=== PATIENT | female | born 1975 | race Caucasian/White ===

== ENCOUNTER 2025-04-07 12:44 | Outpatient (CLI) | payer BC, MEDICAID, SELFPAY ==
--- NOTE | ~2025-04-07 | MMUS_ITS ---
EXAMINATION: US breast RT limited, MM diagnostic tori BI w gemma HISTORY: Palpable right breast abnormality. Recent trauma. Bruising in the area of concern. TECHNIQUE: Additional 3-D tomosynthesis images of the breasts were performed and synthetic 2-D images were generated. CAD analysis was submitted and interpreted. High resolution Limited right breast ult rasound was performed. COMPARISON: Comparison to multiple prior studies sequentially, with oldest reviewed study dated 02/2023. BREAST PARENCHYMAL COMPOSITION: Not dense: There are scattered areas of fibroglandular density. FINDINGS: MAMMOGRAPHIC FINDINGS: There are no suspicious masses, calcifications or architectural distortion in either breast to sugges t malignancy. ULTRASOUND: Limited right breast ultrasound: An area palpable concern at 3:30, 5 cm from the nipple there is an o sydnee parallel oriented hyperechoic mass without internal vascularity measuring 9 x 9 x 6 mm. No signif icant posterior features. IMPRESSION: 1. Oval parallel oriented hyperechoic right breast mass at 3:30, 5 cm from the nipple measuring 9 mm, likely benign lipoma or hematoma. 2. Recommend 6 month follow-up Limited right breast ultrasound BI-RADS category 3, probably benign findings. Reviewed, dictated and finalized at location B. IMPRESSION: 1. Oval parallel oriented hyperechoic right breast mass at 3:30, 5 cm from the nipple measuring 9 mm, likely benign lipoma or hematoma. 2. Recommend 6 month follow-up Limited right breast ultrasound BI-RADS category 3, probably benign findings.
--- OUTSIDE RECORDS SUMMARY | 2025-04-07 12:53 | XMS_ITS | Clinical Summary ---
Author Organization [facility] Address [address] [place] [address] Phone Care Team Providers Care Cabin Worker Name Role Phone Stefany Alvarado Primary Care Provider [phone] Allergies Active Allergy Reactions Criticality Noted Date Comments Flagyl (As Hcl) Nausea and Vomiting,Constipation Low 08/26/2022 Medications aspirin (CRISTIAN CHEWABLE) 81 mg Tablet, Chewable Take 1 Tablet (81 mg) by mouth daily. 30 Tablet 1 07/11/20 24 Active ticagrelor (BRILINTA) 90 mg Tablet Take 1 Tablet (90 mg) by mouth 2 times daily. 180 Tablet 3 5 4:54 PM CDT 07/21/20 24 Active nitroglycerin (NITROSTAT) 0.[address], [address] 1 Tablet (0.4 mg) under tongue every 5 minutes as needed for Chest Pain. 25 Tablet 3 4 8:10 AM INSTRUMENT TECHNICIAN APPRENTICE 07/21/20 24 Active levothyroxine 125 mcg tabletIndications: Primary hypothyroidism Take 1 Tablet (125 mcg) by mouth daily in the morning. 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 90 Tablet 3 03/23/20 25 Active atorvastatin (LIPITOR) 80 mg tablet Take 1 Tablet (80 mg) by mouth daily. 90 Tablet 3 5 4:54 PM CDT 07/21/20 24 025 Discontin ued(Reord er) ezetimibe (ZETIA) 10 mg tablet Take 1 Tablet (10 mg) by mouth daily. 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 6 mL 3 5 12:12 PM CDT 09/23/19 25 025 Discontin ued(Reord er) levothyroxine 125 mcg tabletIndications: Primary hypothyroidism Take 1 Tablet (125 mcg) by mouth daily in the morning. 30 Tablet 2 5 4:54 PM CDT 12/10/19 25 025 Discontin ued(Reord er) Active Problems Patient Care Coordination No te Formatting of this note migh t be different from the original. Bert Reza MD Pfitzinger, Karen L, JOSÉ MIGUEL Problem Noted Date Diagnosed Date Groin abscess 11/26/2024 S/P angioplasty with stent 11/09/2024 Mixed dyslipidemia 11/09/2024 SIRS (systemic inflammatory response syndrome) 1 09/25/2023 Acute nonintractable headache 07/25/2024 Adrenal nodule 07/25/2024 Coronary artery disease invo lving cloverdale coronary artery of cloverdale heart without angina pectoris 07/25/[address] elevation myocardial infarction (S SIS) 07/25/2024 Hyperbilirubinemia 07/25/2024 Tobacco dependence 07/25/2024 Transaminitis 07/25/2024 Chest pain 07/08/2024 Tobacco abuse 07/08/2024 Severe hypothyroidism 07/08/2024 Symptomatic bradycardia 07/08/2024 Primary hypothyroidism 07/08/2024 Myxedema 07/08/2024 Benign essential HTN 07/08/2024 Mixed hyperlipidemia Resolved Problems Problem Noted Date Diagnosed Date Resolved Date STEMI (ST elevation myocardial infarction) 07/08/2024 11/26/2024 Hypothermia 07/08/2024 11/26/2024 Encounters Date Type Department Care Team Description 03/23/2025 1:40 PM CDT Office Visit [facility] Endocrinology [address] [address] [address] [place] [address] Margaret Douglas MD Primary hypothyroidism (Primary Dx); 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; Essential hypertension; Mixed hyperlipidemia 03/14/2025 External Device Data STL ABSTRACTION Provider, Abstract 02/21/2025 External Device Data STL ABSTRACTION Provider, Abstract 01/31/2025 External Device Data STL ABSTRACTION Provider, Abstract 01/31/2025 External Device Data STL ABSTRACTION Provider, Abstract from Last 3 Months Immunizations Immunization Administration Dates Next Due (ADACEL/BOOSTRIX)(10 YR UP) TDAP VACCINE, 0.5ML, IM 10/23/2023 Family History Medical History Relation Name Comments Breast Cancer Maternal Grandmother Colon Cancer Neg Hx Ovarian Cancer Neg Hx Uterine Cancer Neg Hx Relation Name Status Comments Daughter Alive Maternal Grandmother Son Alive Social History Tobacco Use Types Packs/Day Years Used Date Smoking Tobacco: Every Day Cigarettes Smokeless Tobacco: Never Tobacco Cessation:Ready to Q uit: Not Asked; Counseling Given: Not Answered Alcohol Use Standard Drinks/Week Comments Not Currently 0 (1 standard drink = 0.6 oz pur e alcohol) Comments No Sex and Gender Information Value Date Recorded Sex Assigned at Female 08/10/2024 9:16 AM INSTRUMENT TECHNICIAN APPRENTICE Legal Sex Female 2:44 PM INSTRUMENT TECHNICIAN APPRENTICE Gender Identity Not on file Sexual Orientation Not on file Last Filed Vital Signs Vital Sign Reading Time Taken Comments Blood Pressure 122/80 03/23/2025 2:10 PM CDT Pulse 99 03/23/2025 2:10 PM CDT Temperature 36.2 C (97.2 F) 12/07/2024 2:04 PM CDT Respiratory Rate 16 12/07/2024 2:04 PM CDT Oxygen Saturation 98% 03/23/2025 2:10 PM CDT Inhaled Oxygen Concentration - - Weight 54.8 kg (120 lb 12.8 oz) 03/23/2025 2:10 PM CDT Height 144.8 cm (4' 9) 03/23/2025 2:10 PM CDT Body Mass Index 26.14 03/23/2025 2:10 PM CDT Plan of Treatment Upcoming Encounters Date Type Department Care Team (Late st Contact Info) Description 04/28/2025 2:30 PM CDT Office Visit [facility] [place] [address] [address] [address] [place] [address] Cuca Palma, COST COORDINATOR [address] [address] [address] [place] [address] 06/22/2025 1:00 PM CDT Office Visit [facility] [place] [address] [place] [address] Stefany Alvarado DO [address] [facility] [place] [address] 06/23/2025 1:00 PM CDT Office Visit [facility] Endocrinology [address] [address] [address] [place] [address] Randi Christine NP [address] [address] [address] [place] [address] 09/29/2025 1:20 PM INSTRUMENT TECHNICIAN APPRENTICE Office Visit [facility] Endocrinology [address] [address] [address] [place] [address] Margaret Douglas MD [address] [place] [address] Health Maintenance Due Date Last Done Comments HEPATITIS B VACCINES (1 of 3 - 19+ 3-dose series) 1995 FIT-DNA Q 3 years 2021 FIT/FOBT Q 1 year 2021 Flex Sig/CT Colonography Q 5 years 2021 BREAST CANCER SCREENING 09/26/2023 09/26/2022 Preventative Visit- Commercial 09/21/2024 08/26/2022 INFLUENZA VACCINE (#1) 2025 Pre-Diabetes and Diabetes Screening 07/08/202707/08 HPV/Cotest (21-29) 08/26/2027 08/26/2022 HPV/Cotest (30-65) 08/26/2027 08/26/2022 CERVICAL CANCER SCREENING 03/14/2028 PAP SMEAR 03/14/2028 03/14/2025, 08/26/2022 COLORECTAL SCREENING 12/05/2032 12/05/2022, 12/06/19 23 Colorectal Cancer Screening 12/05/2032 DTAP/TDAP/TD VACCINES (2 - Td or Tdap) 10/23/2033 Medical Devices Implanted Type Area Category Development Manager Device Identifier Shelf Expiration Date Model / Serial / Lot Stent Synergy Xd 2.08v33he Evrlms ut [id number] - [id number] Implanted:Qty : 1 on 07/08/2024 at [facility] Stent Right: Coronary [employer] 11/17/2025 [id number] / / [id number] Procedures Procedure Name Priority Date/Time Associated Diagnosis Comments LIPID PANEL Routine 03/23/2025 3:22 PM CDT 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 Mixed hyperlipidemia TSH REFLEXIVE Routine 03/23/2025 3:22 PM CDT Primary hypothyroidism HEMOGLOBIN A1C Stat 07/08/2024 4:40 AM CDT COLONOSCOPY REPORT 12/05/2022 1: 44 PM CDT MAMMO 3D YIN SCREEN BILAT W OR WO CAD Routine 09/26/2022 1:53 PM INSTRUMENT TECHNICIAN APPRENTICE Visit for screening mammogram CERV/VAG CYTO AGE BASED SCREEN PAP Routine 08/26/2022 2:45 PM INSTRUMENT TECHNICIAN APPRENTICE Well woman exam with routine gynecological exam Screening for cervical cancer from Last 3 Months or Most Recently Relevant to Health Maintenance Results * TSH REFLEXIVE (03/23/2025 3:22 PM CDT) TSH 0.48 mIU/L [facility] Comment: Reference Range > or = 20 Years 0.40-4.50 Ranges First trimester 0.26-2.66 Second trimester 0.55-2.73 Third trimester 0.43-2.91 Test Performed at: [facility] [address] [place] [address] Cady Pollock MD Blood 03/23/2025 3:22 PM CDT 03/23/2025 3:23 PM CDT Margaret Douglas MD CHEMISTRY ORDERABLES Final Result [facility] [phone] [facility] [address] [place] [address] * LIPID PANEL (03/23/2025 3:22 PM CDT) CHOLESTEROL 156 <200 mg/dL [facility] HDL 50 > OR = 50 mg/dL [facility] TRIGLYCERIDE 86 <150 mg/dL [facility] LDL CALCULATED 88 mg/dL (calc) [facility] Comment: Reference range: <100 Desirable range <100 mg/dL for primary prevention; <70 mg/dL for patients with CHD or diabetic patients with > or = 2 CHD risk factors. LDL-C is now calculated using the Brenden-Wick calculation, which is a validated novel method providing better accuracy than the Friedewald equation in the estimation of LDL-C. Brenden SS et al. TREVA. 2013;310(09): 3144-1727 (http://education.Opsens/faq/ACN583) CHOL/HDL RATIO 3.1 <5.0 (calc) [facility] NON-HDL CHOLESTEROL 106 <130 mg/dL (calc) [facility] Comment: For patients with diabetes plus 1 major ASCVD risk factor, treating to a non-HDL-C goal of <100 mg/dL (LDL-C of <70 mg/dL) is considered a therapeutic option. Test Performed at: [facility] [address] [place] [address] Cady Pollock MD Blood 03/23/2025 3:22 PM CDT 03/23/2025 3:23 PM CDT Margaret Douglas MD CHEMISTRY ORDERABLES Final Result Performing Organization Address City/[facility] de Phone Number [facility] [phone] [facility] [address] [place] [address] * HEMOGLOBIN A1C (07/08/2024 4:40 AM CDT) HEMOGLOBIN A1C 5.6 <=5.6 % 07/08/2024 5:34 AM CDT [facility] EST. AVG GLUCOSE, A1C 114 mg/dL 07/08/2024 5:34 AM CDT [facility] Blood Collection / Unknown 07/08/2024 4:40 AM CDT 07/08/2024 5:05 AM CDT Narrative [facility] - 07/08/2024 5:34 AM CDT HGB A1C INTERPRETATION NORMAL: <5.7% PRE-DIABETES: 5.7 - 6.4% DIABETES: 6.5% OR GREATER David Damico MD CHEMISTRY ORDERABLES Final Result Performing Organization Address City/[facility] Co de Phone Number [facility] [[email or web address]] CLIA # [id number] [address] [place] [id number] * COLONOSCOPY REPORT (12/05/2022 1:44 PM CDT) Narrative Procedure Note Henrry Stacy MD - 12/05/2022 1:44 PM CDT [facility] Endoscopy Patient Name: Vanesa Nuñez Procedure Date: 12/05/2022 Date of : 1975 Admit Type: Ambulatory Attending MD: Henrry Stacy MD, Procedure: Colonoscopy Indications: Screening for colorectal malignant neoplasm, This is the patient's first colonoscopy Patient Profile: This is a 47 year old female. Refer to note in patient chart for documentation of history and physical. Providers: Henrry Stacy MD Referring MD: Medicines: Propofol per Anesthesia Complications: No immediate complications. Procedure: Pre-Anesthesia Assessment: - Prior to the procedure, a History and Physical was performed, and patient medications, allergies and sensitivities were reviewed. The patient's tolerance of previous anesthesia was reviewed. - The risks and benefits of the procedure and the sedation options and risks were discussed with the patient. All questions were answered and informed consent was obtained. - Patient identification and proposed procedure were verified prior to the procedure by the physician, the nurse, the anesthesiologist and the packer and carry out. The procedure was verified in the pre-procedure area. - ASA Grade Assessment: II - A patient with mild systemic disease. - After reviewing the risks and benefits, the patient was deemed in satisfactory condition to undergo the procedure. - Using IV propofol under the supervision of an anesthesiologist was determined to be medically necessary for this procedure based on review of the patient's medical history, medications, and prior anesthesia history. Informed consent was obtained for the procedure, including moderate sedation after risks were discussed. Based on the pre-procedure assessment, including review of the patient?s medical history, medications, allergies, and review of systems, the patient was deemed to be an appropriate candidate for sedation. A timeout was performed. Continuous ECG monitoring, pulse oximetry, blood pressure monitoring, and direct observation were performed. The (Colon 9419) was introduced through the anus and advanced to the cecum, identified by the ileocecal valve. The colonoscopy was somewhat difficult due to poor bowel prep with stool present. Successful completion of the procedure was aided by straightening and shortening the scope to obtain bowel loop reduction, using scope torsion and lavage. The patient tolerated the procedure well. The quality of the bowel preparation was adequate to identify polyps greater than 5 mm in size. The ileocecal valve, appendiceal orifice, and rectum were photographed. The bowel preparation used was CoLyte via split dose instruction. The entire colon was visualized. Estimated Blood Loss: Estimated blood loss: none. Findings: A few small-mouthed diverticula were found in the sigmoid colon, descending colon, transverse colon and ascending colon. There was no evidence of diverticular bleeding. A moderate amount of liquid semi-liquid solid stool was found in the rectum, in the sigmoid colon, in the descending colon, in the transverse colon, in the ascending colon and in the cecum, interfering with visualization. Lavage of the area was performed using copious amounts of sterile water, resulting in clearance with fair visualization. The retroflexed view of the distal rectum and anal verge was normal and showed no anal or rectal abnormalities. The exam was otherwise without abnormality. Impression: - Mild diverticulosis in the sigmoid colon, in the descending colon, in the transverse colon and in the ascending colon. There was no evidence of diverticular bleeding. - Stool in the rectum, in the sigmoid colon, in the descending colon, in the transverse colon, in the ascending colon and in the cecum. - The distal rectum and anal verge are normal on retroflexion view. - The examination was otherwise normal. - No specimens collected. Recommendation: - High fiber diet. - Use fiber, for example Citrucel, Fibercon, Konsyl or Metamucil. - Repeat colonoscopy in 7-10 years for screening purposes. - Patient has a contact number available for emergencies. The signs and symptoms of potential delayed complications were discussed with the patient. Return to normal activities tomorrow. Written discharge instructions were provided to the patient. Procedure Code(s): --- Professional --- G0121, Colorectal cancer screening; colonoscopy on individual not meeting criteria for high risk Diagnosis Code(s): --- Professional --- Z12.11, Encounter for screening for malignant neoplasm of colon I10, Essential (primary) hypertension E78.5, Hyperlipidemia, unspecified E03.9, Hypothyroidism, unspecified Z72.0, Tobacco use K57.30, Diverticulosis of large intestine without perforation or abscess without bleeding CPT copyright 2020 [employer]. All rights reserved. The codes documented in this report are preliminary and upon bracelet former review may be revised to meet current compliance requirements. Henrry Stacy MD 12/05/2022 1:43:48 PM This report has been signed electronically. Number of Addenda: [address] [place] [address]. [id number] [place] Henrry Stacy MD GI PROCEDURE ORDERABLES Fin al Result * MAMMO SCRN BILAT 3D YIN W OR WO CAD (09/26/2022 1:53 PM INSTRUMENT TECHNICIAN APPRENTICE) Anatomical Region Laterality Modality Breast Bilateral Mammography 09/26/2022 1:54 PM INSTRUMENT TECHNICIAN APPRENTICE Addenda Addendum by Elizabeth Charles MD on 10/29/2022 5:04 AM INSTRUMENT TECHNICIAN APPRENTICE ADDENDUM: Attempts were made to obtain outside comparison prior mammograms however none were available. This will serve as baseline mammogram. FINDINGS: There is an asymmetry in the superior slightly lateral left breast, approximately 5 cm from the nipple. No suspicious breast masses. No concerning microcalcifications or distortion. No suspicious mammographic or tomographic finding to suggest right breast malignancy. IMPRESSION: Asymmetry in the superior slightly lateral left breast. Additional evaluation needed. RECOMMENDATION: Diagnostic left mammogram. Ultrasound if needed. OVERALL FINAL ASSESSMENT: BI-RADS CATEGORY 0: Incomplete, Needs additional imaging evaluation. Impressions 09/26/2022 8:37 PM INSTRUMENT TECHNICIAN APPRENTICE FINDINGS/IMPRESSION: Final report and recommendations will be rendered, with addendum on this report, once comparison mammogram is made available, to assess stability mammographically. OVERALL FINAL ASSESSMENT: BI-RADS CATEGORY 0 - incomplete, needs comparison to prior mammograms RECOMMENDATION: Pending comparison with prior mammogram. Results will be sent to patient via lay letter by mail. DICTATION LOCATION: [facility] 09/26/2022 8:37 PM INSTRUMENT TECHNICIAN APPRENTICE BILATERAL DIGITAL SCREENING MAMMOGRAM WITH TOMOSYNTHESIS WITH COMPUTER AIDED DETECTION EXAM DATE: 09/26/2022 1:53 PM INDICATION: Breast cancer screening. 47 year old asymptomatic female. History provided at time of exam: Family history of breast cancer in maternal grandmother TECHNIQUE: Low Dose full field Digital Breast tomosynthesis examination was performed with 2D and 3D acquisitions. Examination is read in conjunction with computer aided detection. Bilateral CC and MLO views were performed. COMPARISON: Prior mammograms from outside facility are currently unavailable. Release form has been signed to obtain these BREAST COMPOSITION: There are scattered areas of fibroglandular density. Procedure Note Elizabeth Charles MD - 09/26/2022 BILATERAL DIGITAL SCREENING MAMMOGRAM WITH TOMOSYNTHESIS WITH COMPUTER AIDED DETECTION EXAM DATE: 09/26/2022 1:53 PM INDICATION: Breast cancer screening. 47 year old asymptomatic female. History provided at time of exam: Family history of breast cancer in maternal grandmother TECHNIQUE: Low Dose full field Digital Breast tomosynthesis examination was performed with 2D and 3D acquisitions. Examination is read in conjunction with computer aided detection. Bilateral CC and MLO views were performed. COMPARISON: Prior mammograms from outside facility are currently unavailable. Release form has been signed to obtain these BREAST COMPOSITION: There are scattered areas of fibroglandular density. FINDINGS/IMPRESSION: Final report and recommendations will be rendered, with addendum on this report, once comparison mammogram is made available, to assess stability mammographically. OVERALL FINAL ASSESSMENT: BI-RADS CATEGORY 0 - incomplete, needs comparison to prior mammograms RECOMMENDATION: Pending comparison with prior mammogram. Results will be sent to patient via lay letter by mail. DICTATION LOCATION: [facility] Elaina Bowden COST COORDINATOR MAMMO ORDERABLES Edited Re sult - Final * CERV/VAG CYTO AGE BASED SCREEN PAP (08/26/2022 2:45 PM INSTRUMENT TECHNICIAN APPRENTICE) COMMENT (PAP): [facility] Comment: This order for age-based cervical cancer and STI screening follows ACOG guidelines(PB 168, 140, TVT652). See individual assays for performing site location. CLINICAL INFORMATION [facility] Comment:None given LAST MENSTRUAL PERIOD [facility] Comment:NONE GIVEN PREV PAP: [facility] Comment:NONE GIVEN PREV BX: [facility] Comment:NONE GIVEN SOURCE [facility] Comment:Endocervix ADEQUACY: [facility] Comment: Satisfactory for evaluation. Endocervical/transformation zone component absent. Age and/or menstrual status not provided PAP INTERP [facility] Comment:Negative for intraep ithelial lesion or malignancy. CYTOLOGY INFECTION [facility] Comment:Trichomonas vaginali s identified. COMMENT (PAP TEST) [facility] Comment: This Pap test has been evaluated with computer assisted technology. SUPERVISOR MAINTENANCE: [facility] Comment: KMS, CT(ASCP) CT Screening location: [place] [address] [address] REVIEW SUPERVISOR MAINTENANCE: [facility] [place] Comment: MEF, CT(ASCP) CT screening location: [address] [place] [address] [address] [place] [address] [facility] EXPLANATORY NOTE [employer] NetworkIsmael Aikena Comment: EXPLANATORY NOTE: The Pap is a screening test for cervical cancer. It is not a diagnostic test and is subject to false negative and false positive results. It is most reliable when a satisfactory sample, regularly obtained, is submitted with relevant clinical findings and history, and when the Pap result is evaluated along with historic and current clinical information. HPV E6/E7 Not Detected Not Detected [facility] Comment: Methodology: Filler And Trimmer-Mediated Amplification This assay detects E6/E7 viral messenger RNA (mRNA) from 14 high-risk HPV types (16,18,31,33,35,39,45,51,52,56,58,59,66,68). Cervical sources are required for HPV testing. If a vaginal source from a patient who has had a total hysterectomy with removal of cervix was submitted, please contact the testing laboratory for alternative testing options. For additional information, please refer to http://education.Social Studios/faq/ADG001t0 (This link if provided for information/ educational purposes only.) Test Performed at: [facility] [address] [place] [address] Bandar Maurice D.O., MPH SL Genital SWAB OF ENDOCERVIX / Unknown 08/26/2022 2:45 PM INSTRUMENT TECHNICIAN APPRENTICE 08/26/2022 9:21 PM INSTRUMENT TECHNICIAN APPRENTICE us Elaina Bowden NP PATHOLOGY/CYTOLOGY ORDERAB LES Final Result Performing Organization Address City/State/[facility] Phone Number [facility] [phone] [facility] [address] [place] [address] from Last 3 Months or Most Recently Relevant to Health Maintenance Insurance [facility] MEDICAID [facility] EXCHANGE RX INFOCROSSING Medicaid Advance Directives For more information, please contact: [phone] * Full Code (Latest Code Status on File) Date Activated Date Inactivated Comments 11/26/2024 9:53 PM 11/29/2024 3:32 PM * Full Code Date Activated Date Inactivated Comments 07/08/2024 6:24 AM 07/10/2024 5:39 PM * Full Code Date Activated Date Inactivated Comments 12/05/2022 11:06 AM 12/05/2022 5:02 PM Care Teams Cabin Worker Relationship Specialty Start Date End Date Stefany Alvarado DO [address] [place] [id number] PCP - General Family Practice 12/07/24
--- OUTSIDE RECORDS SUMMARY | 2025-04-07 12:53 | XMS_ITS | Data Portability ---
Author Organization [facility] [place] Address [address] [place] [address] [place] [address] Assessment Encounter Date Assessment Date Assessment LastModified by Organization Details LastModified Time 03/14/2025 03/14/2025 Annual gynecological exam performed. Patient will come back in a year unless there are new symptoms. [email or web address] Not available 03/14/2025 10:07:16 Plan of Treatment Reminders Order Date Submit Date Provider Last Modified By Organization Details Last Modified Time Details Appointments IOP COLPO 2024 02:30P M Procedure Room Not available Not available Not available IOP COLPO 2024 02:30P M Danilo GOODWIN MD Not available Not available Not available Lab pap, IG + HR HPV - HPV regardle ss but if HPV is positive need subtypin g 16,18/[address]/gc/tr ich 2024 025 [facility] (Lab), [address], [place], [address], 03/17/2025 18:44:26 HBsAg (hepatit is B surface Ag), serum 2024 025 [facility], [address], [place], [address], 03/17/2025 18:44:26 Referral None recorded . Procedures None recorded . Surgeries None recorded . Imaging MAMMO, diagnost ic, digital, bilatera l - Right breast mass at 2 o'clock 2024 025 [facility], [address], [place], [address], 03/21/2025 04:02:44 Medication Orders Effexor XR 37.5 mg capsule, extended release 2024 025 [id number], [address], [place], [address], 03/14/2025 10:38:33 clotrima zole-bet amethaso ne 1 %-0.05 % topical cream 2024 025 [id number], [address], [place], [address], 03/14/2025 10:38:31 Patient TargetsNo targets recorded. Patient InstructionsNo instructions recorded. Reason for Referral None Reported. Results Created Date Observation Date Name Description Value Unit Range Abnormal Flag Note LastModifiedBy Organization Detail LastModifiedTime 03/14/2003/14/2025 IMAGE GUIDE D PAP AND HPV REGAR DLESS image guided Pap, HPV regardless of Pap result SEE RESULT S BELOW abnormal CASE REPOR T: Cytol ogy Gynec ologi jillian Repor t Case: [id number] Autho nathanael jones Provi anne: Meghana khan, Judy , ANP, RIGHT OF WAY CLEARER Colle cted: 03/14 0949 Order ing Locat ion: [place] Patho logy Recei george: 03/15 0938 First Scree n: Faith kapoor, Quinn lucas, [place] Patho logis t: Krista Briceno MD Speci men: Edilson chen Pap - Image d, Vagin a STATE MENT OF ADEQU ACY: Satis facto ry for evalu ation ----- ----- ----- ----- ----- ----- ----- ----- ----- ----- ----- ----- ----- ----- ----- ----- ----- ---- FINAL DIAGN OSIS: Epith elial Cell Abnor malit y, Squam ous Cell: Low Grade Squam ous Intra epith elial Lesio n (LSIL ). Elect cara shields by Krista Briceno MD on 2024 at 1509 CDT ----- ----- ----- ----- ----- ----- ----- ----- ----- ----- ----- ----- ----- ----- ----- ----- ----- ---- HPV RESUL TS: HPV mRNA E6/E7 : Posit otilio - HPV mRNA Detec marsha HPV GENOT YPE 16 (ELIZABETH) : Not Detec marsha HPV GENOT YPE 18/45 (ELIZABETH) : Not Detec marsha NOTE: This high risk HPV mRNA assay detec ts fourt een high- risk HPV types (16, 18, 31, 33, 35, 39, 45, 51, 52, 56, 58, 59, 66, 68) witho ut diffe renti ation . This assay can diffe renti ate HPV 16 from HPV 18/45 , but does not diffe renti ate betwe en HPV 18 and HPV 45. A negat otilio HPV 16, 18/45 genot ype assay resul t does not exclu de the possi bilit y of cytol ogic abnor malit ies or of futur e or under lying ODILON 1, ODILON 3 or cance r. COMME NT: This speci men was revie wed by a Cytot echno logis t and/o r Patho logis t (as indic ated in this repor t) after evalu ation using the Thinp rep Imagi ng Syste m. CLINI JILLIAN INFOR MATIO N: Menst rual Statu s: LMP (if appli cable ): Clini jillian Histo ry/Pr eviou s Pap: Type of Neopl sonya (if appli cable ): Signi richard t Clini jillian Findi ngs: Other Histo ry: Hormo herb (if appli cable ): BC DARBY FOLLO W-UP: Follo w up as max nted, based on curre nt guide lines and indiv idual patie nt consi derat ions. Not Available [facility] (Lab) [address], [place], [address], 03/17/2025 18:44:26 03/14/20 25 03/14/2025 CT/GC AND TRICH OMONA S VAGIN CONRADO (RRNA ), THINP REP VIAL CT/GC and trichomonas vaginalis (rrna), thinprep SEE RESULT S BELOW negati ve CHLAM YDIA TRACH OMATI S, PCR: Negat otilio NEISS ERIA GONOR RHOEA E, PCR: Negat otilio TRICH OMONA S VAGIN CONRADO RIBOS OMAL RNA (RRNA ): Negat otilio Not Available [facility] (Lab) [address], [place], [address], 03/17/2025 18:44:27 Result Notes None recorded. 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 HUMAN PAPILLOMAV IRUS IN CONDITIONS CLASSIFIED ELSEWHERE AND OF UNSPECIFIE D SITE;Pract ice ID: 0001 Not Available [facility] 0 17:06:[address] Concept Active 2015 Encntr for general adult medical exam w/o abnormal findings;P ractice ID: 0001 Not Available [facility] 0 17:06:[address] Concept Active 2015 Encntr for obgyn nurse exam (general) (routine) w/o abn findings;P ractice ID: 0001 Not Available [facility] 0 17:06:06 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, high risk on cervical specimen 122141389 Active 2015 Cervical high risk HPV DNA test positive;P ractice ID: 0001 Not Available [facility] 0 17:06:06 Syphilis test finding 166665040 Active 2015 Encntr screen for infections w sexl mode of transmiss; Practice ID: 0001 Not Available [facility] 0 17:06:06 Acute vaginitis 92072536 Active 2015 Acute vaginitis; Practice ID: 0001 Not Available [facility] 0 17:06:06 Screening for malignant neoplasm of rectum Active 2016 Encounter for screening for malignant neoplasm of rectum;Pra ctice ID: 0001 Not Available [facility] 0 17:06:06 Atypical squamous cells of undetermi tyler significa nce on cervical Papanicol aou smear 708919522 Active 2016 Atyp squam cell of undet signfc cyto smr crvx (ASC-US);P ractice ID: 0001 Not Available [facility] 0 17:06:06 Problem Notes None recorded. Procedures Surgical History Date Name Laterality Status Provider Name and Address Organization Details Recorded Time 10/22/19 25 partial hysterectomy completed [facility] 03/14/2025 10:12:53 Imaging Results None recorded. Procedure Notes None recorded. Medical Equipment None Reported. Allergies Allergen ID Allergen Name Allergen Category Reaction Reaction Severity Criticality Documentation Date Start Date Code Code System Note Provider Name and Address Organization Details Recorded Time 54547 Flagyl medicatio n Not available Not available Not available 03/14/2025 6 [facility] 5 10:07:59 Medications Name Sig Start Date Stop Date Status Note LastModified by Organization Details LastModified Time atorvasta tin 80 mg tablet Take 1 tablet every day by oral route. active Not Available Not Available No t Available venlafaxi ne ER 37.5 mg capsule,e xtended release 24 hr TAKE 1 CAPSULE BY MOUTH EVERY DAY active Not Available Not Available No t Available Diflucan 150 mg tablet take 1 tablet by oral route once and if sx persist after 72 hours take second dose 11/27 completed Prescrib ed Elsewher e: No Locat ion: [facility] odify By: jonnathan ratliffunter DateTime : 03/18/20 16 11:30:00 AM Not Available Not Available Not Available levothyro xine 25 mcg tablet take 1 tablet by oral route every day active Prescrib ed Elsewher e: Yes Loca tion: [facility] odify By: noble Hutton r DateTime : 10/30/19 15 02:30:00 PM Not Available Not Available Not Available Flagyl 500 mg tablet take 1 tablet by oral route every 8 hours 11/27 completed Prescrib ed Elsewher e: No Locat ion: [facility] odify By: jonnathan terry DateTime : 11/13/19 16 10:13:42 AM Not Available Not Available Not Available simvastat in 5 mg tablet take 1 tablet by oral route every day in the evening 03/14 completed Prescrib ed Elsewher e: Yes Loca tion: [facility] odify By: noble Hutton r DateTime : 10/30/19 15 02:30:00 PM Not Available Not Available Not Available levothyro xine 125 mcg tablet TAKE 1 TABLET BY MOUTH EVERY DAY IN THE MORNING active Not Available Not Available No t Available clotrimaz ole-betam ethasone 1 %-0.05 % topical cream APPLY TO AFFECTED AND SURROUND ING AREAS TWICE DAILY IN THE MORNING AND EVENING FOR 2 WEEKS active Not Available Not Available No t Available Brilinta 90 mg tablet Take 1 tablet twice a day by oral route. active Not Available Not Available No t Available Vitals Date Recorded Body height Body mass index (BMI) Body weight Systolic And Diastolic Provider Name and Address Organization Details Last Updated DateTime 03/14/2025 144.78 cm 26.3 kg/m2 12897.83 g 139/87 mm[Hg] Vicki Dial [facility] 03/14/2025 10:07:53 Social History Question Answer Notes LastModified by Organizat ion Details LastModified Time Tobacco Smoking Status Current Every Day Smoker Vicki houston [facility] 03/14/2025 10:11:25 Are You Blind Or Do You Have Difficulty Seeing? Yes [email or web address] Information n ot available 03/14/2025 What Is Your Level Of Caffeine Consumption? Heavy [email or web address] Information not available 03/14/2025 In The 14 Days Before Symptom Onset, Have You Had Close Contact With A Laboratory-confirm ed COVID-19 While That Case Was Ill? No Information n ot available 03/14/2025 In The 14 Days Before Symptom Onset, Have You Had Close Contact With A Person Who Is Under Investigation For COVID-19 While That Person Was Ill? No [email or web address] Information not available 03/14/2025 Have You Been To An Area Known To Be High Risk For COVID-19? No [email or web address] Information not available 03/14/2025 Are You Deaf Or Do You Have Serious Difficulty Hearing? No [email or web address] Information not available 03/14/2025 What Type Of Diet Are You Following? REGULAR [email or web address] Information n ot available 03/14/2025 What Is The Highest Grade Or Level Of School You Have Completed Or The Highest Degree You Have Received? [id number] Information not available 03/14/2025 Do You Use Your Seat Belt Or Car Seat Routinely? Yes [email or web address] Information not available 03/14/2025 Are You Sexually Active? Yes [email or web address] Information not available 03/14/2025 Do You Have Smoke And Carbon Monoxide Detectors In Your Home? Yes [email or web address] Information not available 03/14/2025 Do You Use Sunscreen Routinely? Yes [email or web address] Information not available 03/14/2025 Do You Have Difficulty Walking Or Climbing Stairs? No [email or web address] Information not available 03/14/2025 Sex: Unknown Functional Status Question Answer Note LastModified by Organizat ion Details LastModified Time What is your level of alcohol consumption? Occasional [email or web address] Information not available 03/14/2025 Are you currently employed? Yes Information not available 03/14/2025 Are you able to walk? YESWOREST [email or web address] Information not available 03/14/2025 Are you able to care for yourself? 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 No [email or web address] Information not available 03/14/2025 What is your exercise level? Occasional [email or web address] Information not available 03/14/2025 Mental Status Question Answer Note LastModified by Organization D etails LastModified Time Do you feel stressed (tense, restless, nervous, or anxious, or unable to sleep at night)? [id number] [email or web address] Information not available 03/14/2025 Family History Relationship Description Onset Age of this Age Resolved Age Notes LastModified by Organization Details LastModified Time Maternal Grandmother Malignant tumor of breast [email or web address] Not available 2024 10:11:10 Notes:Father: Diabetes radhai tus Sister: Hyperlipidemia Medical History Condition Response Allergies (Food, seasonal, environmental ) N Other N Breast Cancer N Drug/Latex Allergies/Reactions N Blood Transfusion N Dermatologic Disorders N Lung Disease N Defects or Inherited Disease N Breast Problem N Gestational Diabetes N Hematologic disorders N Anesthesia Complications N History of STI N Deep Vein Thrombosis N Polycystic ovary syndrome N Anxiety Disorder N Autoimmune disease N Arthritis N Infertility N Polyps N Acid Reflux (GERD) N History of abnormal pap N Cancer N Stroke N Varicosities N Neurologic/Epilepsy N Endometriosis N High Cholesterol N Headaches N Fibromyalgia N Kidney Disease N Heart Problems Y Kidney or Bladder Problems N Thyroid Problems N GI Problems N Eating Disorder N Anemia N Art (IVF or FET) N Psychiatric Illness N Ovarian Cancer N Diabetes N Pulmonary (TB, Asthma) N Hepatitis/Liver Disease N No Past Medical History N Eczema N Urinary Tract Infection N Abuse/Domestic Violence N Asthma N Trauma/Violence N Depression/ depression N Heart Disease N Pre-Eclampsia N Hypertension N Osteoporosis N Thrombophilias N Gynecological History Statement/Question Response Date of Last Colonoscopy Date of Last Mammogram Sexually Active? Y STIs/STDs Y Date of Last Pap Smear Sexual Problems? N Current Control Method Hysterectom y Age at First Child 22 Obstetrics History GPAL:G 2 P 2 0 0 2 Type Value Full Term 2 Living 2 Total 2 Past Encounters Encounter ID Performer Location Encounter Start Date Encounter Closed Date Diagnosis/Indication Diagnosis SNOMED-CT Code Diagnosis ICD10 Code Diagnosis Note [id number] Cj Goodwin MD [place] [address] [address] 03/14/2025 09:35:28 03/14/2025 11:13:33 Well woman health examination 677976197 Z01.419 Annual gynecologi jillian exam performed. Patient will come back in a year unless there are new symptoms. Suggest Calcium with Vitamin D if not eating in diet. Patient advised to get annual flu shot. Recommend yearly physicals and perform monthly breast exams. Genetic testing is available for patients with family history of cancer. Engage in safe sexual practices, use condoms. Encouraged to have daily exercise. Avoid tobacco and illicit drugs, moderation of alcohol. If BMI greater than 25 dietary consult advised. If you have any questions please call or email. mammogram- diagnostic mammogram ordered for right breast mass; pt to schedule colon cancer screening - UTD PCP DEXA scan- n/a Pap smear- pap w/ HPV collected off vaginal cuff (patient reports hx of hyst due to abnormal pap smears) laboratory evaluation - declined STI testing - requested Patient states that she does not have PCP currently; PCP list given Candidal intertrigo [id number] 66901 B37.2 Discussed that candidal intertrigo is a superficia l skin-fold infection caused by the yeast Zeina, often occurring in warm, moist areas of the body.Discu ssed symptoms such as redness, irritation , and discomfort Rx sent for topical antifungal /steroid cream to help treat infection and reduce inflammati on.Reviewe d factors that can trigger this condition, which include heat and moisture. Mass of right breast [id number] N63.10 We discussed her breast exam findings and pt is counseled. Questions answered. Imaging: bilateral diagnostic mammogram ordered for further evaluation if right breast mass.Order given, patient to schedule. FU for WWE in one year. Venereal d isease screening 002661069 Z11.3 Pt requested STI testing.Di scussed the various types of STDs, related symptoms and the potential consequenc es (including effects on fertility) of STD infections . Reviewed ways to limit exposure and prevention techniques . Menopausal symptom 28719 002 N95.1 Reviewed self-help strategies (dietary changes/ex ercise/acu puncture/e tc.), herbal and other OTC therapies, hormonal options as well as other medication s used to treat common menopausal symptoms.D iscussed that hormonal options to treat vasomotor symptoms are not recommende d due to patient's history of myocardial infarction .Discussed low-dose SSRI to treat hot flashes and night sweats.Ris ks/benefit s/AEs reviewed.P atient desires to trial Effexor 37.5 mg PO daily.Candice ent to RTO in 3 months for medication check. Health Concerns Section Related Observation LastModified by Organization Detai ls LastModified Time None Recorded Concern Status LastModified by Organization Details LastModified Time None Recorded Advance Directives Directive None Recorded Payers Insurance Date Sequence Insurance Name Policy Number Policy Aleman Covered Member ID Aleman Member ID Guarantor Name 03/18/2025 1 HARI YOUNGNY (PPO) [id number] Vanesa uNñez [id number] Vanesa Nuñez 04/07/2025 2 [place] [facility] Vanesa Savannah [id number] Vanesa Savannah 03/14/2025 1 [facility] (MEDICAID REPLACEMENT - HMO) Vanesa Nuñez [id number] Vanesa [place] 03/28/2025 3 [place] [facility] Vanesa Nuñez [id number] Vanesa [place] 04/07/2025 1 MAIRA-JERE (EPO) [id number] Vanesa Nuñez [id number] Vanesa Nuñez Notes Date Note Type Note Provider Name and Address Organization Details Recorded Time 03/14/2025 text/html Annual Intelligence Officer Post-MenopausalRepor marsha bypatient.Menopausal Symptoms:no menopausal symptoms; normal vaginal lubrication Vaginal Bleeding:history of menopause having occurred; no history of post menopausal bleeding Urinary Symptoms:no hematuria; no incontinence; no nocturia; no urinary frequency Vulva:no genital lesion; no vulvar atrophy Vagina:normal vaginal discharge; no vaginal atrophy Breast:no nipple discharge; no breast pain;breast lump Sexual Complaints:no sexual complaints Psychological Symptoms:no depression; no anxiety Preventive Measures:encourage regular mammograms starting age 40; encourage self breast examination; encourage regular exercise; encourage no tobacco use New patient presents for annual exam. Patient reports that she has had a rash and itching under abdomen and in creases of groin intermittently over the past year. Patient states that the symptoms are worse when she sweats. Patient reports that she was on vacation one month ago and ran into a car door on accident. Patient states that she had a bruise on her right breast afterwards and 2 weeks ago she has felt a knot on right breast under where the bruise was. Denies pain, nipple discharge. Reports FH of breast cancer (maternal grandmother). 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 Patient also reports worsening hot flashes and night sweats over the past two years. JUDY ECHEVERRIA NP [address], [place], [address], [facility] 03/14/2025 11:11:18 OBGyn Episode Ob Episode Information Episode Created Date Number of Fetuses Patient Bloodtype Patient rh Status Prepregnancy Weight lbs Domestic Partner Domestic Partner Phone Father Name Emergency Communications Officer Status 03/14/20 25 1 CLOSED Fetus Data First Name Last Name Admitted to NICU Weight (g) Sex Living Outcome Pediatric Complications Fetus ID Race Codes Race Delivery Type 2267.96 F Full Term [id number] Vaginal Delivery Jhoan Calculation Initial Jhoan Date Initial Exam Date Initial Exam Provider Initial Ultrasound Date Last Menstrual Period Date Ultra Sound Weeks Gestation 0 Eighteen To Twenty Week Jhoan Update Ultra Sound Date Fundal Height At Umbil Quickening Date Ultra Sound Latest Weeks Gestation Final Jhoan Confirmed By Final Jhoan Confirmed Date Final Jhoan Date Ultra Sound Latest Days Gestation 0 0 Menstrual History Last Menstrual Date Menses Monthly On Bcp Conception Prior Menses Frequency Hcg Plus Date Menarche Onset Age Delivery Information Delivery Date Delivery Type Labor Anesthesia Weeks Gestation Incision Type Labor Labor Length Hrs Delivered By Post Complications Tubal Sterilization Discharge Date Comments 1 40 Discharge Information Feeding Method Contraceptive Method Maternal HG B and HCT Levels Ob Episode Information Episode Created Date Number of Fetuses Patient Bloodtype Patient rh Status Prepregnancy Weight lbs Domestic Partner Domestic Partner Phone Father Name Emergency Communications Officer Status 03/14/20 25 1 CLOSED Fetus Data First Name Last Name Admitted to NICU Weight (g) Sex Living Outcome Pediatric Complications Fetus ID Race Codes Race Delivery Type 2721.55 2 M Full Term [id number] Vaginal Delivery Jhoan Calculation Initial Jhoan Date Initial Exam Date Initial Exam Provider Initial Ultrasound Date Last Menstrual Period Date Ultra Sound Weeks Gestation 0 Eighteen To Twenty Week Jhoan Update Ultra Sound Date Fundal Height At Umbil Quickening Date Ultra Sound Latest Weeks Gestation Final Jhoan Confirmed By Final Jhoan Confirmed Date Final Jhoan Date Ultra Sound Latest Days Gestation 0 0 Menstrual History Last Menstrual Date Menses Monthly On Bcp Conception Prior Menses Frequency Hcg Plus Date Menarche Onset Age Delivery Information Delivery Date Delivery Type Labor Anesthesia Weeks Gestation Incision Type Labor Labor Length Hrs Delivered By Post Complications Tubal Sterilization Discharge Date Comments 7 40 Discharge Information Feeding Method Contraceptive Method Maternal HG B and HCT Levels
== END 2025-04-07 12:45 | disposition home or self-care (01) ==
LOC: ANHIMG 12:51
PROVIDERS: Visit Provider Student in an Organized Health Care Education/Training Program
DX: N63.12 Unspecified lump in the right breast, upper inner quadrant (principal)
CPT/HCPCS: 76642; 77062; 77066; G0279